=== PATIENT | male | born 1970 | race Caucasian/White ===

== ENCOUNTER 2022-06-08 16:09 | Emergency (ER) | payer MEDICAID, SELFPAY ==
[2022-06-08 16:19] VITALS: BP 138/84; PULSE 93; RESP 18; TEMP 36.4; O2SAT 94; BMI 31.3
[2022-06-08 17:07] LABS: MANUAL DIFF FLAG NO
[2022-06-08 17:10] LABS: Basophils Percent Auto 0.5 % (0-2); Eosinophils Absolute Auto 0.1 X10*3/uL (0.0-0.4); Eosinophils Percent Auto 0.6 % (0-4); Hematocrit 45.9 % (42.0-52.0); Hemoglobin 15.7 g/dl (14.0-18.0); Imm Gran Abs Auto 0.03 X10*3/uL (0.00-0.03); Imm Gran Pct Auto 0.4 % (0.0-0.4); Lymphocytes Absolute Auto 2.1 X10*3/uL (1.2-4.9); Lymphocytes Percent Auto 27.1 % (20-40); Mean Corpuscular HGB Conc 34.2 g/dl (31.0-36.0); Mean Corpuscular Hemoglobin 32.6 pg (27.0-33.0); Mean Corpuscular Volume 95.4 fL (80.0-98.0); Mean Platelet Volume 9.4 fL (9.4-12.4); Monocytes Absolute Auto 0.4 X10*3/uL (0.1-1.2); Monocytes Percent Auto 5.1 % (2-11); Neutrophils Absolute Auto 5.1 x10*3/uL (2.0-8.3); Neutrophils Percent Auto 66.3 % (45-73); Platelet Count 264 X10*3/uL (160-400); Red Blood Count 4.81 X10*6/uL (4.60-5.80); Red Cell Distribution Width 12.3 % (11.0-16.0); White Blood Count 7.7 X10*3/uL (4.8-10.8)
[2022-06-08 17:39] LABS: Alanine Aminotransferase 41 U/L (0-40); Albumin Level 4.8 g/dL (3.5-5.0); Alkaline Phosphatase 76 U/L (39-117); Anion Gap 16 (12-20); Aspartate Amino Transferase 35 U/L (5-37); Bilirubin Total 0.4 mg/dL (0.0-1.0); Blood Urea Nitrogen 15 mg/dL (9-16); Calcium 9.4 mg/dL (8.4-10.2); Carbon Dioxide 27 mmol/L (22-29); Chloride 104 mmol/L (96-108); Creatinine Clr Calc Pharmacy 82.4; Estimated Glomerular Filt Rate > 60; Ethanol 366 mg/dL; Glucose Random 112 mg/dL (60-115); Potassium 4.9 mmol/L (3.3-5.1); Sodium 142 mmol/L (135-145); Total Protein 8.1 g/dL (6.5-8.0)
--- NOTE | 2022-06-08 18:28 | ED_ITS ---
HPI - Alcohol General Chief Complaint: ETOH/Substance Use Stated Complaint: detox - unsteady gait Time Seen by Provider: 06/08/22 18:28 Source: patient Mode of arrival: ambulatory Limitations: no limitations History of Present Illness HPI narrative: 52 yo male with history of alcohol abuse and dependence presents to the ER seeking detox from alcohol. He reports he usually drinks 1/2 of a box of wine per day (about 2 bottles) and last drink was at noon today. He was recently at [facility] but left AMA on 06/06, the same day he presented there. He reports longstanding history struggling with alcohol abuse and dependence, he has been to several detox is in the past. He has significant stress at home, his has COVID and there is a lot that needs to be done at home. He presents with his sister who is very supportive and wants help him get sober. MD complaint: alcohol intoxication, alcohol dependence and desires rehab Last drink: Hours (ago) Amount of alcohol consumed: 2 bottles of wine Chronic alcohol use: Yes Recent trauma: No Associated symptoms: denies other symptoms Treatments prior to arrival: none Related Data Allergies Allergy/AdvReac Type Severity Reaction Status Date / Time No Known Allergies Allergy Verified 06/08/22 16:19 Review of Systems Review of Systems: Constitutional: No Fever, No Chills ENT/Mouth: No sore throat, No Rhinorrhea, No Swallowing Difficulty Cardiovascular: No Chest Pain, No SOB Respiratory: No Cough, No Sputum Gastrointestinal: No Nausea, No Vomiting, No Diarrhea, No abdominal Pain, No Hematochezia, No Melena Genitourinary: No Dysuria, No Urinary Frequency, No Hematuria Musculoskeletal: No joint pain, No Myalgias Skin: No Skin Lesions, No rash Neuro: No Weakness, No Numbness, No Dizziness, No Headache Psych: +Anxiety/Panic, + Depression , No SI Heme/Lymph: No Bruising, No Lymphadenopathy PMFSH Social History Social History Advance Directives: No Advance Directives Information Provided: No Physical Exam ED Vital Signs: Vital Signs - 24 hr 06/08/22 16:19 06/08/22 19:31 Temperature 97.6 F 98.5 F Pulse Rate 93 82 Respiratory Rate 18 18 Blood Pressure 138/84 133/80 Pulse Oximetry 94 95 Oxygen Delivery Method Room Air Room Air BMI result Body Mass Index 31.3 Appearance: Alert. Oriented X3. No acute distress. Eyes: Pupils equal, round and reactive to light. ENT: Pharynx normal. Neck: Normal inspection. Neck supple. CVS: Normal heart rate and rhythm. Pulses normal. Respiratory: No respiratory distress. Breath sounds normal. Abdomen: Soft and nontender. +BS x4 Skin: Skin warm and dry. Normal skin color. Normal skin turgor. No rashes. Extremities: No lower extremity edema. Neuro: Oriented X 3. No motor deficit. No sensory deficit. Normal speech and cognition. Depressed affect. Course Course Course Narrative: 52-year-old male with history of alcohol abuse and dependence presents to the ER seeking detox from alcohol. Alcohol level today is 366. He is motivated to achieve and maintain sobriety. Seen by member of the care team. At this time there is no bed available. Will remain in the emergency room overnight and plan to speak with defensive line coach/care team tomorrow morning in hopes of placement. Will place in physician observation at this time. Will get COVID swab for placement, his is home with COVID but he has not been around her recently. He is fully vaccinated. Physician observation started at 7:05pm. Patient placed in physician observation because patient is awaitingdetox placement. At the time observation was started patient's vital signs were stable. Patient is alert and oriented. Neuro exam is non-focal. CV: RRR and lungs are clear. Will continue to monitor. MDM - Alcohol Lab Data Result diagrams: 06/08/22 17:03 06/08/22 17:03 Labs: Lab Results 06/08/22 06/08/22 Range/Units 17:03 17:03 WBC 7.7 (4.8-10.8) X10*3/uL RBC 4.81 (4.60-5.80) X10*6/uL Hgb 15.7 (14.0-18.0) g/dl Hct 45.9 (42.0-52.0) % MCV 95.4 (80.0-98.0) fL MCH 32.6 (27.0-33.0) pg MCHC 34.2 (31.0-36.0) g/dl RDW 12.3 (11.0-16.0) % Plt Count 264 (160-400) X10*3/uL MPV 9.4 (9.4-12.4) fL Immature Gran % (Auto) 0.4 (0.0-0.4) % Neut % (Auto) 66.3 (45-73) % Lymph % (Auto) 27.1 (20-40) % [place] % (Auto) 5.1 (2-11) % Eos % (Auto) 0.6 (0-4) % Baso % (Auto) 0.5 (0-2) % Lymph # (Auto) 2.1 (1.2-4.9) X10*3/uL [place] # (Auto) 0.4 (0.1-1.2) X10*3/uL Eos # (Auto) 0.1 (0.0-0.4) X10*3/uL Baso # (Auto) 0.0 (0.0-0.2) X10*3/uL Abs Immat Gran (auto) 0.03 (0.00-0.03) X10*3/uL Absolute Neuts (auto) 5.1 (2.0-8.3) x10*3/uL Absolute Nucleated RBC 0.000 (0.0-0.012) X10*3/uL Nucleated RBC % (auto) 0.0 (0.0-0.2) /100WBC Sodium 142 (135-145) mmol/L Potassium 4.9 (3.3-5.1) mmol/L Chloride 104 (96-108) mmol/L Carbon Dioxide 27 (22-29) mmol/L Anion Gap 16 (12-20) BUN 15 (9-16) mg/dL Creatinine 1.10 (0.5-1.4) mg/dL Estim Creat Clear Calc 82.4 Estimated GFR > 60 Random Glucose 112 (60-115) mg/dL Calcium 9.4 (8.4-10.2) mg/dL Total Bilirubin 0.4 (0.0-1.0) mg/dL AST 35 (5-37) U/L ALT 41 H (0-40) U/L Alkaline Phosphatase 76 (39-117) U/L Total Protein 8.1 H (6.5-8.0) g/dL Albumin 4.8 (3.5-5.0) g/dL Ethyl Alcohol 366 H* mg/dL Critical Care Time Critical Care Time Critical Care Time: No Discharge Plan Discharge Clinical Impression: Alcoholic intoxication, Alcohol dependence Patient Disposition: Still a Patient
[2022-06-08 19:31] VITALS: BP 133/80; PULSE 82; RESP 18; TEMP 36.9; O2SAT 95
[2022-06-08 20:35] LABS: COVID-19 Test Negative (Negative)
--- NOTE | 2022-06-08 20:41 | MHC.CARE ---
CARE team met with pt who is seeking detox at this time. Pt reports that he left AMA at [facility] on 06/06 and states I don't know why I did it . Spoke with ED provider and pt will remain the night in the ED and resume detox bedsearch in the am. Pt's sister Prerna is requesting someone call her tomorrow as she is very concerned with his alcohol consumption.
[2022-06-08 21:53] VITALS: BP 134/79; PULSE 79; RESP 17; TEMP 36.9; O2SAT 95
[2022-06-08] MEDS: Acetaminophen 325 MG TABLET 975 MG PO (22:33)
[2022-06-08] MEDS: chlordiazePOXIDE HCl 25 MG CAPSULE PO (22:34)
[2022-06-08 22:52] VITALS: RESP 16
--- NOTE | 2022-06-08 23:00 | PC.NURSE ---
pt given a sandwich, water and crackers per request. pt resting in bed
[2022-06-08 23:44] VITALS: BP 133/86; PULSE 80; RESP 17; O2SAT 95
--- NOTE | 2022-06-09 01:18 | PC.NURSE ---
pt sleeping in bed at this time
[2022-06-09 02:03] VITALS: BP 127/65; PULSE 83; O2SAT 95
--- NOTE | 2022-06-09 03:45 | PC.NURSE ---
pt is sleeping at this time, in no distress
[2022-06-09 04:00] VITALS: BP 143/82; PULSE 81; O2SAT 92
--- NOTE | 2022-06-09 04:58 | PC.NURSE ---
pt sleeping in HW bed. no distress
[2022-06-09 06:00] VITALS: RESP 12
--- NOTE | 2022-06-09 07:28 | PC.NURSE ---
Pt refusing to detox today, education attempted, pt refusing.. pt stating that he wants to leave. Provider made aware. Pts to pick pt up.
== END 2022-06-09 07:30 | disposition still patient (30) ==
PROVIDERS: Internal Medicine; Physician Assistant; Emergency Provider Emergency Medicine; PCP Family Medicine
DX: F10.220 Alcohol dependence with intoxication, uncomplicated (principal); Y90.8 Blood alcohol level of 240 mg/100 ml or more; Z20.822 Contact with and (suspected) exposure to COVID-19; F32.A Depression, unspecified
CPT/HCPCS: 36415; 80053; 82077; 85025; 87635; 99284; 99285